=== PATIENT | female | born 1975 | race Asian ===

== ENCOUNTER → 2018-07-10 15:22 | Outpatient (CLI) | payer MEDICAID, SELFPAY ==
--- NOTE | 2018-07-10 15:33 | MRI_ITS ---
STUDY: MRI RIGHT ANKLE WITHOUT CONTRAST REASON FOR EXAM: Female, 43 years old. Posterior tibial tendinitis . TECHNIQUE: Standardized fat and water weighted pulse sequences were obtained in all 3 orthogonal planes. COMPARISON: None. FINDINGS: Normal subcutis adipose space. There is tenosynovitis of the posterior tibialis tendon sheath with fluid in the tendon sheath and longitudinal split tear, series 3 images 04/01 through . Normal flexor digitorum longus tendon. Normal flexor hallucis longus tendon. Normal peroneus longus and brevis tendons. Normal tibialis anterior tendon. Normal extensor hallucis longus tendon. Normal extensor digitorum longus tendons. Normal Achilles tendon and teno-osseous insertion. Normal plantar fascia. There is a plantar calcaneal spur, but without cancellous marrow edema. Normal intrinsic muscles of the rearfoot. Normal distal tibiofibular syndesmotic ligamentous complex. Normal lateral ligamentous complex. Normal subtalar ligaments and sinus tarsi. Normal deltoid ligamentous complexes. Normal plantar calcaneonavicular (spring) ligament. Normal tibiotalar articulation. Normal talar dome. Normal subtalar articulations. Normal talonavicular articulation. Normal calcaneocuboid articulation. Normal navicular-cuneiform articulations. There is mild edema of the distal tibia and fibula and talus and calcaneus and cuneiform and metatarsals with stress injury or bone bruising, series 11 image 01/17 through . MRI/Lower Ext Joint Only (Routine) IMPRESSION: Tenosynovitis and partial split tear of the tibialis posterior. Bone bruising or stress injury of the ankle and foot. Electronically Signed: Diego Rojas MD at 17:31 EST , Service support ,
== END ==
PROVIDERS: Family Provider Family Medicine; PCP Family Medicine; Referring Provider Podiatrist; Visit Provider Podiatrist
DX: M76.821 Posterior tibial tendinitis, right leg (principal)
CPT/HCPCS: 73721

== ENCOUNTER 2019-11-14 10:55 | Day surgery (SDC) | payer MEDICAID, SELFPAY ==
[2019-11-11 08:15] LABS: Absolute Lymphocyte Count 1.17 X10^3/uL (0.83-4.51); Absolute Neutrophil Count 1.3 X10^3/uL (2.0-7.7); Basophil# 0.04 X10^3/uL; Basophil% 1.4 % (0-1); Eosinophil# 0.09 X10^3/uL; Eosinophils% 3.1 % (0-5); Hematocrit 38.2 % (37-47); Hemoglobin 12.6 g/dL (12.0-15.0); Lymphocyte # 1.17 X10^3/ul (4.0); Lymphocyte % 40.6 % (19-41); Mean Corpuscular Hgb 33.7 pg (27.0-32.0); Mean Corpuscular Volume 102.1 fL (81-99); Mean Platelet Vol. 8.9 fl (6.2-12.0); Monocyte% 10.4 % (0-10); NRBC Flagged by Analyzer 0 % (0-5); Neutrophil # 1.27 X10^3/uL (2.7-7.7); Neutrophil % 44.2 % (47-70); Platelet Count 296 K/mm3 (150-450); RBC Distribution Width CV 13.2 % (11.6-14.6); RBC Distribution Width SD 49.8 fl (35.1-43.9); Red Blood Count 3.74 M/mm3 (4.2-5.4); White Blood Count 2.9 K/mm3 (4.4-11.0)
[2019-11-11 08:44] LABS: ALB/GLOB Ratio 1.4 RATIO (0.9-2.4); AST(SGOT) 70 U/L (15-37); Alanine Aminotransfer ALT/SGPT 86 U/L (13-56); Albumin, Serum 3.9 g/dL (3.2-5.0); Alkaline Phosphatase 74 U/L (45-117); Anion Gap 5 (5-15); BUN 26 mg/dL (7-18); BUN/Creat Ratio 39.8 RATIO (10-20); Calcium,Total 8.8 mg/dL (8.5-10.1); Chloride 102 mmol/L (98-107); Creatinine, Serum 0.65 mg/dL (0.55-1.02); EST Glomerular Filtration Rate 104 mL/min (>60); Est Glom Filt Rate - Afr Amer 126 mL/min (>60); Globulin 2.7 g/dL (2.2-4.2); Glucose 90 mg/dL (74-106); Potassium 3.7 mmol/L (3.5-5.1); Protein, Total 6.6 g/dL (6.4-8.2); Sodium Level 135 mmol/L (136-145)
[2019-11-15] VITALS (8 sets, daily range): BP systolic 99–106; BP diastolic 64–74; PULSE 47–51; RESP 16–18; TEMP 36.6–37.3; O2SAT 97–100; BMI 16.8
[2019-11-15 08:25] LABS: Internal QC Validated? YES +Cl - CLEAR BKGD
[2019-11-15 08:31] LABS: Pregnancy, Urine Negative Negative
[2019-11-15] MEDS: Lactated Ringers 1,000 ML 100 ML IV (08:48)
--- NOTE | 2019-11-15 09:30 | BON_PTH ---
PATIENT: MITCHEL WATERS LOC: [facility] – [place] U#:[id number] AGE/SX: 44/F ROOM: RE11/14/[address]: Dr. Solo Sahu DPM : 1975 BED: DIS: 11/15/2019 SPEC #: [id number] RECD: 11/15/19 12:54 STATUS: KRISTA REQ #: [id number] RILEY: 11/15/19 09:[address]: Solo Sahu DEPT: SURGICAL PATHOLOGY RECD BY: Garrett Abad ENTERED: 11/18/19 11:35 SP TYPE: Bone OTHR DR: Dr. Valerio Freed MD Tissues: Bone of foot, NOS Procedures: Decalcification bone/plaque Surgery Specimen Level III HEADER OPERATION: First metatarsal cuneiform fusion, bunionectomy, fusion of second PRE-OP DIAGNOSIS: Hallux valgus, bunion; second toe hammertoe TISSUE SUBMITTED: Right foot bunion, second hammertoe bone MICROSCOPIC DIAGNOSIS Right foot bunion and second hammertoe bone: Pieces of bone with reactive changes, clinically bunion and hammertoe. AI:norma 11/21/19 MICROSCOPIC DESCRIPTION Slides are reviewed. GROSS DESCRIPTION Received in fixative is one container labeled with the patient's name and designated right foot bone and second toe bone. The specimen consists of multiple pieces of bone in aggregate measure 4 x 2.5 x 0.4 cm. The entire specimen is submitted in two cassettes for decalcification. / AI:norma 11/18/19 TC:5 CPT: 58707, 85116
--- NOTE | 2019-11-15 09:30 | RAD_ITS ---
STUDY: X-RAY - RIGHT FOOT CLINICAL: Female, 44 years old. RIGHT 1ST METATARSAL CUNEIFORM FUSION. TECHNIQUE: 3 intraoperative view(s) of the foot. COMPARISON: None. FINDINGS: Intraoperative imaging provided for first cuneiform metatarsal fusion with screw and plate fixation device. RAD/Foot min 3 Views IMPRESSION: Intraoperative fusion of the first cuneiform metatarsal. Electronically Signed: Bran Santamaria, at 14:10 EDT , Service support ,
[2019-11-15] MEDS: Cefazolin 2 GM in 0.9% Normal Saline 100 ML IV (09:35)
[2019-11-15] MEDS: Bupivacaine Mpf 0.5% 30 ML VIAL (09:55)
--- NOTE | 2019-11-15 13:10 | PCM.DC.POD ---
Discharge Diet: Light diet - advance as tolerated Discharge Activity: May Not Drive, Use Crutches Weight Bearing Status: No weight bearing - No weightbearing right foot Keep extremity elevated above heart level: Right Leg - Keep right foot elevated for at least 50 minutes of every hour Call your doctor if your incision/area has: Continuous Slow Oozing, Sudden Increased Bleeding, Foul Smelling Discharge Call your doctor if you observe: Fever of 101 or Higher, Coldness, Increased Pain, Shortness of breath, Chest pain, Calf discomfort, Uncontrolled pain Cleanse incision/area with: Do not get Incision Wet, Keep Dressing Clean & Dry Allergies/Adverse Reactions: Allergies No Known Allergies Allergy (Verified 11/15/19 08:25) Medications to take at Discharge Multivitamin with Minerals [Multiple Vitamin] 1 ea PO DAILY 11/08/19 Amoxicillin/Potassium Clav [Augmentin 500-125 Tablet] 1 ea PO Q12H #14 tab 11/15/19 Ibuprofen 600 mg PO Q6H PRN PRN #40 tab 11/15/19 Oxycodone [Oxyir] 5 mg PO Q6H PRN PRN 3 Days #30 tablet 11/15/19 The following prescriptions were given: Amoxicillin/Potassium Clav [Augmentin 500-125 Tablet] 1 ea PO Q12H #14 tab Transmission Status: Pending to [facility] Ibuprofen 600 mg PO Q6H PRN PRN #40 tab PRN Reason: Pain Score 1-10/10 Transmission Status: Pending to [facility] Oxycodone [Oxyir] 5 mg PO Q6H PRN PRN 3 Days #30 tablet PRN Reason: Pain Score 1-10/10 Transmission Status: Sent to [facility] Primary Care Physician: Valerio Freed MD [Primary Care Provider] - Test Results: Test results from this visit will be discussed in further detail at your follow-up appointment, if applicable. Please Follow Up With: Solo Sahu DPM When: 1 week, sooner if needed
--- NOTE | 2019-11-15 13:11 | PCM.OPRPT ---
Report of Operation Date of Procedure: 11/15/19 Pre-Operative Diagnosis: Hallux valgus, right foot. Hammer toe 2nd toe right foot Post-Operative Diagnosis: Same Surgery/Procedure Performed:: 1st tarsometatarsal cuneiform arthrodesis bunionectomy right foot. Correction of right 2nd digit hammer toe Description of Surgical Findings:: Same outreach liaison: Maria C Type of Anesthesia:: Local MAC Specimen's removed: Bunion and 2nd hammer toe bone sent to pathology (from right foot) Estimated Blood Loss (mL): 25mL Description of Procedure: Indications: This is a 44 year old female with history of chronic symptomatic right hallux valgus bunion pain, as well as 2nd toe pain due to significant hammer toe deformity. This was discussed with patient, and she elected to under go surgical intervention due to severe pain which is also causing significant limited activity - 1st metatarsal cuneiform lapidus arthrodesis bunionectomy, as well as correction of 2nd digit hammer toe. This was discussed with her in great detail, reviewed the procedures, as well as the rationale of the procedures with her in great detail. We discussed and reviewed the possible benefits vs risks/potential complications. The estimated healing/recovery time and protocol were reviewed with her in detail. Reviewed the goals and the expectations. She expressed understanding and agreement and elected to proceed forward with surgical intervention as noted above. The consent forms were reviewed and they were freely signed. All questions were answered. No guarantees were given or implied. She was cleared from medical standpoint to proceed with surgery. Operative Procedure: The patient was brought back into the operating room and was placed on the operating table in the supine position. Patient was carefully secured to the operating room table with a safety belt around his waist. A time out was performed and the patient was properly identified and the surgical plan was confirmed. The patient received IV antibiotic prophylaxis - 2g of Ancef. The patient received MAC anesthesia per the anesthesiologist. After the skin was cleansed with 70% Isopropyl alcohol 10mL of 0.5% Bupivacaine plain was given as a 1st and 2nd ray block. A well padded pneumatic tourniquet was applied around the patient's right ankle. The right foot was scrubbed, prepped, and draped in the usual aseptic fashion. Attention was directed to the right foot, there was noted to be significant hallux valgus bunion w/ instability of the 1st ray, with 1st toe deviated into 2nd toe, contracture of 2nd toe. The right foot was elevated for 3 minutes and the right ankle pneumatic tourniquet was inflated to 250mmHg. A linear longitudinal skin incision was medially along the medial 1st metatarsal cuneiform joint as well as overlying the 1st metatarsal phalangeal joint. This was done using a 15 blade. Careful dissection was completed down to the capsule of the 1st metatarsal cuneiform joint, and it was incised using a 15 blade and partially reflected exposing the joint surfaces. All cartilage from the 1st metatarsal cuneiform joint surfaces (posterior aspect of the base of the 1st metatarsal and the anterior aspect of the medial cuneiform) were debrided away and was removed down to bleeding bone. This was done with a curette as well as a powered rasp and saw, being sure not to cause osteonecrosis. The site was flushed out with copious amounts of normal saline solution. The surfaces were fenestrated using a powered drill to aid fusion. The 1st metatarsal was reduced into normal position. The site was fixated use rigid open reduction internal fixation, using 1 Arthrex plantar plate, using a total of 4 locking screws and 1 nonlocking compression screw across the fusion site. An additional 1 x 3.5mm FT Arthrex threaded screw was placed across the fusion site for extra stability to aid fusion, this was also done using rigid open reduction internal fixation technique. There was very good compression and bone to bone contract with the prepped fusion site, in good alignment. The fusion site was rigid and very stable. This was checked and confirmed with intraoperative fluoroscopy. There was noted to be a residual medial and dorsal eminence to the 1st metatarsal head. Careful dissection was completed down to the 1st metatarsal phalangeal joint capsule and it was incised, it was partially reflected. The medial and dorsal eminence was resected using a powered sagittal saw removing the nonviable cartilage from these sites in process, the resected bone was sent to pathology. Also, there was noted to be significant contracture of the lateral 1st metatarsal phalangeal joint as well as the adductor hallucis tendon which was preventing proper reduction of the deformity. Therefore a small skin incision was overlying the dorsal lateral 1st metatarsal phalangeal joint. Dissection was completed down to the lateral capsule and adductor hallucis tendon which were released using a 15 blade. There was was now normal range of motion to the 1st metatarsal phalangeal joint. There was smooth normal gliding range of motion of the 1st metatarsal phalangeal joint at this time with normal alignment. The joint was in good alignment. The surgical site was flushed out with copious amounts of normal saline solution. Tissues were healthy and viable at this time. The subcutaneous tissue layers were reapproximated using 2-0 and 3-0 Vicryl and the skin was reapproximated using 3-0 Monocryl. Cavilon was painted to the edges of the sutured skin incision and steristrips were applied across the sutured skin incision. Attention was directed to the 2nd toe on the right foot, it was significantly contracted/hammered. A dorsal linear longitudinal incision was made over the proximal interphalangeal joint (PIPJ) of the toe. An incision was made longitudinally to the extensor digitorum longus tendon and split down the middle, leaving the ends intact, this was done with a 15 blade. The dorsal PIPJ joint capsule was incised with a 15 blade. The cartilage from the head of the proximal phalanx and head of the middle phalanx was resected using a powered sagittal saw. The site was flushed out with copious amounts of normal saline solution. An Arthrex FT compression screw was placed through the phalanges of the toe holding the toe in rectus position however toe was noted to be dorsally contracted at level of the 2nd metatarsal phalangeal joint capsule. A small skin incision was made to the dorsal 2nd metatarsal phalangeal joint and the capsule on the dorsal aspect was released. The screw was not holding properly, so it was decided to remove the screw, the extensor tendon was released at the level of the PIPJ, and was shortened and repaired using 3-0 Vicryl. The 2nd toe was now in rectus position at this time in all planes. This was confirmed with intra operative fluoroscopy. The site was again flushed out with copious amounts of normal saline solution. The skin was reapproximated using 3-0 Nylon. The resected bone from the bunion and 2nd hammer toe was sent to pathology as specimen. 20 mL of a 0.5% Bupivacaine plain was given as a lock block around the surgical site for further pain control. The pneumatic tourniquet was deflated at 100 minutes, there was immediate return of warmth and perfusion to the foot and to all toes on the foot with normal temperature gradient and CFT < 2 seconds to all toes once the tourniquet was deflated. All hemostasis was achieved prior to closure. A dressing was applied which consisted of Betadine soaked adaptic, 4x4 gauze, Kerlix, and an fahad bandage. Of note, all vital structures including all vital neurovascular and tendon structures were properly identified, protected, and retracted as necessary throughout the above operative procedures. The anterior tibial tendon was left intact. The patient tolerated the above operative procedures well at the anesthesia well with no complication. The patient was transported from the operating room to the recovery room with vital signs stable and in good condition. Post operative orders were placed. Post operative instructions were reviewed with his parents who was with him. No weightbearing right foot foot, keep right foot elevated for at least 50 minutes of every hour, keep dressing and splint clean, dry and intact. Prescription for Oxycodone as well as Ibuprofen for pain control was prescribed, also Augmentin 500/125mg PO q 12 hours was prescribed for antibiotic prophylaxis. Post operative xrays were obtained in the recovery room (DP, Oblique, and lateral foot) - there was again noted to be 1st metatarsal cuneiform arthrodesis bunionectomy in good position, with joint surfaces in good alignment and good bone to bone contract with intact hardware; no acute problems or complications seen. 2nd toe in rectus position w/ no evidence of complication. Patient to follow up with me in office within 1 week, sooner if needed. Grafts/Implants Used: Arthrex plantar plate w/ 5 screws - Complications None - Admit VTE Documentation VTE Mechan Device Prophylaxis: SCD's
--- NOTE | 2019-11-15 13:15 | RAD_ITS ---
STUDY: X-RAY - RIGHT FOOT CLINICAL: Female, 44 years old. POST OP TECHNIQUE: 3 view(s) of the foot. COMPARISON: None. FINDINGS: There is a plantar calcaneal spur. Normal visualized subtalar, talonavicular, calcaneocuboid, tarsal and tarsometatarsal articulations. Normal metatarsi. The patient is status post fusion with screw and plate fixation of the first cuneiform and first metatarsal joint. There is a bipartite tibial sesamoid. Normal interphalangeal joint of the great toe. Normal phalanges of the great toe. Normal second through fifth metatarsophalangeal joints. Normal interphalangeal joints and phalanges of the lesser toes. Soft tissue swelling. Air is seen within the soft tissues most likely postoperative in nature. RAD/Foot min 3 Views IMPRESSION: Status post fusion of the first cuneiform metatarsal joint. Electronically Signed: Bran Santamaria, at 14:10 EDT , Service support ,
== END 2019-11-15 14:13 | disposition home or self-care (01) ==
LOC: SDC 11-15 07:58 → AC 11-15 07:58
PROVIDERS: Anesthesiology; PCP Family Medicine; Referring Provider Podiatrist; Visit Provider Podiatrist
PROC: (CPT 28292; principal; 2019-11-15 09:15)
DX: M20.11 Hallux valgus (acquired), right foot (principal); M20.41 Other hammer toe(s) (acquired), right foot; M21.611 Bunion of right foot; Z11.59 Encounter for screening for other viral diseases
CPT/HCPCS: 28285; 28297; 36415; 73630; 76000; 80053; 81025; 85025; 87635; 88304; 88311; C1713; G2023; J7120; J2405; U0002

== ENCOUNTER → 2020-01-10 14:01 | Outpatient (CLI) | payer MEDICAID, SELFPAY ==
[2019-11-15 08:28] VITALS: BMI 16.8
--- NOTE | 2020-01-10 14:06 | VDLE_ITS ---
Reason For Study: Pain/Swelling RIGHT LEFT GSV is normal. CFV is compressible, spontaneous, phasic, CFV is compressible, spontaneous, phasic, competent, and demonstrates normal competent and demonstrates normal augmentation. augmentation. FV is compressible, spontaneous, phasic, competent and demonstrates normal augmentation. POP V is compressible, spontaneous, phasic, competent and demonstrates normal augmentation. T/P Trunk is compressible. PTV is compressible. RT PerV is compressible. Procedure Exam performed in department. A preliminary report was called and/or faxed to [facility]. Interpretation Summary Deep veins of the right lower extremity are patent and compressible segmentally. There is no evidence of right lower extremity deep vein thrombosis. Valvular competence appears intact within the proximal deep venous system on the right . The right great saphenous vein appears patent and compressible segmentally. Ordering Physician: Solo Sahu Referring Physician: Valerio Freed Performed By: Gisela Selby RVT and Student
== END ==
PROVIDERS: PCP Family Medicine; Referring Provider Podiatrist; Visit Provider Podiatrist
DX: I82.401 Acute embolism and thrombosis of unspecified deep veins of right lower extremity (principal); M79.89 Other specified soft tissue disorders; M79.661 Pain in right lower leg
CPT/HCPCS: 93971

== ENCOUNTER 2020-01-27 15:03 | Outpatient (RCR) | payer MEDICAID, SELFPAY ==
[2019-11-15 08:28] VITALS: BMI 16.8
--- NOTE | 2020-01-27 15:52 | HP.PTEVAL ---
Patient's Visit Information MITCHEL WATERS is a 45 year old F referred to Physical Therapy by Dr. Solo Sahu DPM with a diagnosis of s/p 1st tarsometatarsal arthodesis, bunionectomy, and 2nd hammer toe correc. Date of Evaluation: 01/27/20 Physical Therapist: Louise Yeager DPT - Visit Plan Frequency: 2x /Week Duration: 4 Weeks Plan: Focus on strength, proprioception and core strength/stabilization. No US - Subjective November 14 on the right foot s/p 1st tarsometatarsal arthodesis, bunionectomy, and 2nd hammer toe correction 11/15/[address] Sahu- Was taken out of the boot 2 weeks ago. Is not wearing the boot at all this point. She is doing great- Agg: walking long distances and standing for long periods of time. worst: 8/10 When she was on it for 2 hours. does not wear orthotics- wearing croc when she stood for those 2 hours. Pain is was in the top of the toe- no radiating pain but does have pain over the scar on the medial side of the foot. Describes the pain as sharp. Best: 0/10 currently and mostly painfree Eases: if she gets off of it and ice. Progressively better in the last few weeks. Goals for PT: walk normal and to get back to running. 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 Goes back to [place] on Monday. Sleep: not disturbed. 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 PMhx/Meds: no change since surgery at the hospital. - Objective Posture: Fh, RS- can correct but does not maintain. Gait: slightly antalgic- decreased stance on the right LE with varying heel/toe pattern. HR/TR seated: reports pain but has full ROM. Palpation: tender along incicions. ROM: WNL in all planes of the ankle and toes. Strength: Core: fair, Hip: 4+/5 Knee: 5/5, Ankle: 4+/5. Flex: Gastroc: moderate, Soleus: moderate - Goals Goal 1:: Patient will be I with HEP and progression Goal Time Frame: 4-6 Weeks Goal 2:: Patient will ambulate >300 feet with a normalized gait pattern Goal Time Frame: 4-6 Weeks Goal 3:: Patient will SLS for 30 sec with no pain or LOB Goal Time Frame: 4-6 Weeks - Rehabilitation Potential Physical Therapy Diagnosis: Patient presents with hypomobility- she has decreased strength and proprioception leading to abnormal gait and increased pain with ADL's Rehabilitation Potential: Fair - Anticipated Interventions Patient/Client Instruction: Educate patient on: Benefits of Fitness Program Therapeutic Exercise to Include: Strength training, Endurance training, Balance training, Coordination, Agility training, Body mechanics, Postural training, Flexibilty training, Gait and locomotor training, Neuromotor development, Passive ROM, Active ROM, Dynamic Lumbar Stabilization, Scapular Strength/Stabilization For the Purpose of:: To improve muscle performance and motor function TENS: Yes Cryotherapy (ice pack, ice massage): Yes Thermo therapy (hot pack): Yes Ultrasound (thermal/non thermal): No For the Purpose of:: To improve nutrient delivery to tissue Thank you for the opportunity to evaluate your patient. For Medicare and Medicare HMO plans, please review the plan of care and approve it. It will need to be FAXED BACK to us at [phone] for Medicare purposes. For Medicare only, by signing this I certify the plan of care. Please let me know if there are questions or concerns regarding this plan of care. Physician Signature: Date:
--- NOTE | 2020-03-30 15:53 | HP.PT.NRP ---
MITCHEL WATERS was seen in my office for initial evaluation on 01/27/20. The following Plan of Care was established for this patient: Initial Frequency: 2x /Week Initial Duration: 4 Weeks Patient/Client Instruction: Educate patient on: Benefits of Fitness Program Therapeutic Exercise to Include: Strength training, Endurance training, Balance training, Coordination, Agility training, Body mechanics, Postural training, Flexibilty training, Gait and locomotor training, Neuromotor development, Passive ROM, Active ROM, Dynamic Lumbar Stabilization, Scapular Strength/Stabilization For the Purpose of:: To improve muscle performance and motor function TENS: Yes Cryotherapy (ice pack, ice massage): Yes Thermo therapy (hot pack): Yes Ultrasound (thermal/non thermal): No For the Purpose of:: To improve nutrient delivery to tissue This patient was last seen in our office . Pertinent comments regarding their Physical therapy will appear below: Patient has not returned to PT in over 6 weeks- appropriate for d/c and return to [place] for further evaluation as needed. At this point I will be discontinuing this patient from physical therapy. I would be happy to see this patient again in the future if found appropriate by the physician. Thank you! SNOW StacyT
== END 2020-01-27 19:00 | disposition home or self-care (01) ==
LOC: PT 15:03
PROVIDERS: PCP Family Medicine; Referring Provider Podiatrist; Visit Provider Podiatrist
DX: Z98.890 Other specified postprocedural states (principal)
CPT/HCPCS: 97110; 97161

== ENCOUNTER 2020-08-27 12:45 | Outpatient (RCR) | payer OTHER, MEDICAID, SELFPAY ==
[2019-11-15 08:28] VITALS: BMI 16.8
== END 2020-08-27 23:59 ==
LOC: IMMUN 12:45
PROVIDERS: PCP Family Medicine; Visit Provider Family Medicine
DX: Z23 Encounter for immunization (principal)
CPT/HCPCS: 0011A; 0012A

== ENCOUNTER → 2022-03-03 | Outpatient (CLI) | payer OTHER, MEDICAID, SELFPAY ==
--- NOTE | 2022-03-03 16:27 | MRI_ITS ---
STUDY: MRI RIGHT REARFOOT WITHOUT CONTRAST REASON FOR EXAM: Pain in the right heel since mid December, runner, evaluate for calcaneal stress fracture. TECHNIQUE: Standardized fat and water weighted pulse sequences were obtained in all 3 orthogonal planes. COMPARISON: Radiographs 11/15/2019, MRI report 07/10/2018. FINDINGS: Normal subcutis adipose space. There is a very small volume of fluid in the submalleolar posterior tibialis tendon sheath (inversion recovery sagittal image 18). The posterior tibialis tendon is morphologically normal. Normal flexor digitorum longus tendon. There is a small volume of fluid in the flexor hallucis longus tendon sheath proximal and distal to the sustentaculum mina (inversion recovery sagittal images 13, 14). Normal peroneus longus and brevis tendons. Normal tibialis anterior tendon. Normal extensor hallucis longus tendon. Normal extensor digitorum longus tendons. Normal Achilles tendon and teno-osseous insertion. There is mild interstitial edema in the central cord of the plantar fascia (inversion recovery sagittal image 11). Normal intrinsic muscles of the rearfoot. Normal distal tibiofibular syndesmotic ligamentous complex. Normal lateral ligamentous complex. Normal subtalar ligaments and sinus tarsi. Normal deltoid ligamentous complexes. Normal plantar calcaneonavicular (spring) ligament. Normal tibiotalar articulation. Normal talar dome. Normal subtalar articulations. Normal talonavicular articulation. Normal calcaneocuboid articulation. Normal navicular-cuneiform articulations. There is postoperative artifact from orthopedic hardware transfixing the first tarsometatarsal articulation. There is mild edema in the distal fibular diametaphysis, distal tibial diametaphysis, calcaneus, talus, and tarsal bones of the midfoot (inversion recovery sagittal images 6-19). There is also mild bone edema of the second through fifth metatarsals (inversion recovery sagittal images 2-11). MRI/Lower Ext/No Jt/w/o IMPRESSION: Mild bone edema of the distal tibia, distal fibula, tarsal bones of the hindfoot and midfoot, and second through fifth metatarsals, a stress phenomenon. Mild plantar fasciitis. Mild flexor hallucis longus tenosynovitis. Very mild posterior tibialis tenosynovitis. Electronically Signed: Wili Kilpatrick MD at 9:09 EDT ,
== END | disposition home or self-care (01) ==
LOC: MRI 16:25
PROVIDERS: PCP Family Medicine; Visit Provider Podiatrist
DX: M84.371A Stress fracture, right ankle, initial encounter for fracture (principal); M72.2 Plantar fascial fibromatosis
CPT/HCPCS: 73718

== ENCOUNTER 2022-12-02 05:56 | Day surgery (SDC) | payer OTHER, MEDICAID, SELFPAY ==
[2022-12-02] VITALS (7 sets, daily range): BP systolic 94–108; BP diastolic 56–74; PULSE 42–51; RESP 16–18; TEMP 36.2–36.9; O2SAT 100; BMI 15.7
--- NOTE | 2022-12-02 | CYST_PTH ---
PATIENT: MITCHEL WATERS LOC: [facility] U#:[id number] AGE/SX: 47/F ROOM: RE12/02/[address]: Dr. Solo Sahu DPM : 1975 BED: DIS: 12/02/2022 SPEC #: [id number] RECD: 12/02/22 11:57 STATUS: KRISTA RERonnell #: [id number] RILEY: 12/02/22 00:[address]: Solo Sahu DEPT: SURGICAL PATHOLOGY RECD BY: Alberto Hill ENTERED: 12/02/22 11:57 SP TYPE: Cyst OTHR DR: ADALID RUIZ Tissues: CYST Procedures: Surgery Specimen Level IV HEADER OPERATION: Excision of cyst and removal of hardware of foot PRE-OP DIAGNOSIS: Ganglion cyst; symptomatic hardware right foot TISSUE SUBMITTED: Right foot cyst MICROSCOPIC DIAGNOSIS Cyst of right foot, excision: Fibrosis and minimal chronic inflammation. Minute fragments of bone with no pathologic change. AM:norma 12/05/2022 MICROSCOPIC DESCRIPTION Slides are reviewed. GROSS DESCRIPTION Received in fixative is one container labeled with the patient's name and designated right foot cyst. The specimen consists of two pieces of lawrence soft tissue measuring in aggregate 2.0 x 1.2 x 0.2 cm. The entire specimen is submitted in one cassette. / SJ:norma 12/02/2022 TC:3 CPT: 93353
[2022-12-02 06:25] LABS: Internal QC Validated? YES +Cl - CLEAR BKGD; Pregnancy, Urine Negative Negative
[2022-12-02] MEDS: Lactated Ringers 1,000 ML 15 ML IV (06:43)
--- NOTE | 2022-12-02 07:15 | RAD_ITS ---
STUDY: X-RAY - RIGHT FOOT CLINICAL: Female, 47 years old. PAIN TECHNIQUE: 2 view(s) of the foot. COMPARISON: Comparison is made with prior study dated November 15, 2019. FINDINGS: Intraoperative imaging provided for cyst excision and removal of hardware. RAD/Foot 2 Views IMPRESSION: Intraoperative images are provided for cyst excision and removal of hardware. Electronically Signed: Bran Santamaria MD at 14:34 EDT ,
[2022-12-02] MEDS: Cefazolin 2 GM in 0.9% Normal Saline 100 ML IV (07:32)
[2022-12-02] MEDS: Bupivacaine Mpf 0.5% 30 ML VIAL (07:32)
--- NOTE | 2022-12-02 09:07 | RAD_ITS ---
STUDY: X-RAY - RIGHT FOOT CLINICAL: Female, 47 years old. Postop. TECHNIQUE: November 14, 2021. view(s) of the foot. COMPARISON: None. FINDINGS: Normal talus, calcaneus, and tarsal bones. Normal visualized subtalar, talonavicular, calcaneocuboid, tarsal and tarsometatarsal articulations. There is removal of the hardware overlying the first tarsometatarsal joint which is fused.. Multiple lucencies secondary to the screw tracts are present. Normal metatarsophalangeal joint of the great toe. Normal tibial and fibular sesamoid bones. Normal interphalangeal joint of the great toe. Normal phalanges of the great toe. Normal second through fifth metatarsophalangeal joints. Normal interphalangeal joints and phalanges of the lesser toes. The soft tissue structures are unremarkable. RAD/Foot min 3 Views IMPRESSION: Interval removal of hardware fusing the first tarsometatarsal joint. Electronically Signed: Jesus Hernandez DO at 16:22 EDT ,
--- NOTE | 2022-12-02 09:10 | DCINST_ITS ---
Discharge Instructions Diet Discharge Diet: Light diet - advance as tolerated Activity Discharge Activity: May Not Drive Weight Bearing Status: No weight bearing (No weightbearing right foot) Keep extremity elevated above heart level: Right Leg (Keep right foot elevated for at least 50 minutes of every hour) Dressing / Incision Call your doctor if your incision/area has: Continuous Slow Oozing, Sudden Increased Bleeding and Foul Smelling Discharge Call your doctor if you observe: Fever of 101 or Higher, Shortness of breath, Chest pain, Increased palpitations (irregular heartbeat), Calf discomfort and Uncontrolled pain Change Dressing in: leave in place till F/U Remove Dressing in: leave in place till F/U Cleanse incision/area with: Keep Dressing Clean & Dry Follow Up Care Please Follow Up With: Solo Sahu DPM When: 1 week, sooner if needed. Test Results: Test results from this visit will be discussed in further detail at your follow- up appointment, if applicable. Discharge Plan Admission Attending Provider: Solo Sahu Primary Care Provider: AILYN ROSARIO Discharge Orders/Prescriptions Prescriptions: New hydrocodone-acetaminophen 5-300 mg tablet 1 tab PO Q4H PRN (Reason: pain) 4 Days Qty: 20 0RF No Action multivitamin with minerals 1 EACH tablet 1 ea PO DAILY ibuprofen 600 MG tablet 600 mg PO Q6H PRN PRN (Reason: Pain Score 1-10/10) Qty: 40 0RF Referrals / Follow Up: AILYN ROSARIO CRNP [Primary Care Provider] - Disposition Disposition (needs filled in before D/C Order can be placed): Home, Self Care
--- NOTE | 2022-12-02 09:12 | OP.PCM_ITS ---
Report of Operation Date of Procedure: 12/02/22 Pre-Operative Diagnosis: Cyst and symptomatic hardware right foot Post-Operative Diagnosis: same Surgery/Procedure Performed:: Removal of cyst and removal of hardware right foot Surgeon: Solo Sahu voip network technician: Type of Anesthesia: General and Local Special Medications: Cyst from dorsal right foot sent to pathology Estimated Blood Loss (mL): 2mL Description of Procedure: Indications: This is a 47 year old female with history of right 1st tarsometatarsal fusion bunionectomy in November 2019, she has developed painful and symptomatic hardware and cyst to the right foot. We discussed surgical intervention of removal of cyst and removal of hardware from the right foot. This was discussed with patient, and she elected to under go surgical intervention due to pain and significant limited activity. This was discussed with her in great detail, reviewed the procedures, as well as the rationale of the procedures with her in great detail. We discussed and reviewed the possible benefits vs risks/potential complications. The estimated healing/recovery time and protocol were reviewed with her in detail. Reviewed the goals and the expectations. She expressed understanding and agreement and elected to proceed forward with surgical intervention as noted above. The consent forms were reviewed and they were freely signed. All questions were answered. No guarantees were given or implied. She was cleared from medical standpoint to proceed with surgery. Operative Procedure: The patient was brought back into the operating room and was placed on the operating table in the supine position. Patient was carefully secured to the operating room table with a safety belt around her waist. A time out was performed and the patient was properly identified and the surgical plan was confirmed. The patient received IV antibiotic prophylaxis - 2g of Ancef. The patient received anesthesia per the anesthesiologist. After the skin was cleansed with 70% Isopropyl alcohol 10mL of 0.5% Bupivacaine plain was given as a 1st ray block on the right foot. A well padded pneumatic tourniquet was applied around the patient's right ankle. The right foot was scrubbed, prepped, and draped in the usual aseptic fashion. Further attention was directed to the right foot, there was prominent hardware and also noted to be a cyst to the dorsal TMT fusion site. An incision was made to the medial foot over the plate and screws. Careful dissection was completed down to the plate and screws. The plate and screws were visualized and removed using the appropriate screw otr refrigerated cdl truck driver. The plate and screws were removed in toto without complication. The site was flushed out with copious amounts of normal saline solution. The remaining tissues were noted to be healthy and viable. The subcutaneous tissue was reapproximated using 3-0 Vicryl and skin with 4-0 Monocryl. Attention was directed to dorsal 1st TMT site where there was a cyst and prominent screw. A skin incision was made overlying the cyst and prominent screw. Dissection was completed down to the cyst and the cyst was firm, round, well defined, and it appeared to be consistent with a fibroma like cyst due to pressure. The cyst was freed up and removed, it measured 0.8cm x 0.8cm - it was sent to pathology as specimen. The underlying screw head was identified, and the screw head was stripped. There was bone growth around the screw head as well. The bone was white and very hard. Due to this the bone around the screw was freed up using a bone cutting rongeur, as well as a curette and trephine. The screw was removed, and the void was packed with cancellous bone chips. The remaining tissues were noted to be healthy and viable. The site was flushed out with copious amounts of normal saline solution. The subcutaneous tissue was reapproximated using 3-0 Vicryl and skin with 4-0 Monocryl. The pneumatic tourniquet was deflated at 71 minutes, there was immediate return of warmth and perfusion to the foot and to all toes on the foot with normal temperature gradient and CFT < 2 seconds to all toes once the tourniquet was deflated. All hemostasis was achieved prior to closure. A dressing was applied which consisted of Betadine soaked adaptic, 4x4 gauze, Kerlix, and an fahad bandage. Of note, all vital structures including all vital neurovascular and tendon structures were properly identified, protected, and retracted as necessary throughout the above operative procedures. The patient tolerated the above operative procedures well at the anesthesia well with no complication. The patient was transported from the operating room to the recovery room with vital signs stable and in good condition. Post operative o rders were placed. Post operative instructions were reviewed with her and her mother who was with her. No weightbearing right foot foot, keep right foot elevated for at least 50 minutes of every hour, keep dressing and splint clean, dry and intact. Prescription for Vicodin [id number] po q 4 hours prn pain. Post operative xrays were obtained in the recovery room (DP, Oblique, and lateral foot) - there was again noted to be 1st metatarsal cuneiform arthrodesis bunionectomy in good position with removed hardware, no acute problems or complications seen. Patient to follow up with me in office within 1 week, sooner if needed. Grafts/Implants Used: Cancellous bone graft Complications None
== END 2022-12-02 10:40 | disposition home or self-care (01) ==
LOC: SDC 05:58 → AC 05:59
PROVIDERS: Anesthesiology; PCP Nurse Practitioner Adult Health; Referring Provider Podiatrist; Visit Provider Podiatrist
PROC: (CPT 28740; principal; 2022-12-02 07:15)
DX: M67.471 Ganglion, right ankle and foot (principal); I73.00 Raynaud's syndrome without gangrene
CPT/HCPCS: 28740; 20680; 01480; 73620; 73630; 76000; 81025; 88304; 88305; J7120; J2405